=== PATIENT | male | born 1955 | race Caucasian/White ===

== ENCOUNTER 2018-07-17 09:22 | Day surgery (SDC) | payer MEDICARE ==
[~2018-07-17] VITALS: Ht 179.1 cm; Wt 87.3 kg
[2018-07-17 09:20] VITALS: BP 128/74
[~2018-07-17 09:22] MED LIST: CARV-50 PO; DIPH25CA83 PO; FLO0.4C PO; GABA-532 PO; IBUP-1984 PO; NITR0.4T SL; PRAV40TA3 PO; ZOLP10TA5 PO
[2018-07-17] MEDS ORDERED: CARV25TA PO (09:56)
[2018-07-17] MEDS ORDERED: LISI10TA4 PO (09:56)
[2018-07-17] MEDS ORDERED: GABA600T13 PO (09:57)
[2018-07-17] MEDS ORDERED: CYCL10TA26 PO (09:57)
[2018-07-17 10:02] VITALS: BP 133/83
[2018-07-17] MEDS ORDERED: fentaNYL/PF 50MCG/1 ML 2ML syringe ONE ×2 (10:20)
[2018-07-17] MEDS ORDERED: MIDAZolam 5mg/5ml vial ONE (10:20)
[2018-07-17 11:00] VITALS: BP 111/73
[2018-07-17 11:10] VITALS: BP 110/71
[2018-07-17 11:20] VITALS: BP 111/70
[2018-07-17 11:30] VITALS: BP 105/73
== END 2018-07-17 11:30 | disposition home or self-care (01) ==
LOC: GI LAB 09:22
PROVIDERS: ATTEND Internal Medicine Gastroenterology
DX: K64.8 Other hemorrhoids (principal); K57.30 Diverticulosis of large intestine without perforation or abscess without bleeding; K63.89 Other specified diseases of intestine
CPT/HCPCS: 45378; G0500; J2250; J3010; J7030; 99152; 99153; A4620

== ENCOUNTER 2020-02-10 13:05 | Inpatient (IN) | payer MEDICARE ==
[~2020-02-10] VITALS: Ht 177.8 cm; Wt 84.6 kg
[~2020-02-10 13:05] MED LIST changes: -CARV-50 PO; +CARV25TA PO; +CYCL10TA26 PO; -DIPH25CA83 PO; -FLO0.4C PO; -GABA-532 PO; +GABA600T13 PO; -IBUP-1984 PO; +LISI10TA4 PO; -NITR0.4T SL; -ZOLP10TA5 PO
[2020-02-10 13:57] LABS: BASOPHILS # (AUTO) 0.1 X10'3 (0-0.2); BASOPHILS % (AUTO) 1.1 % (0-1); EOSINOPHILS # (AUTO) 0.3 X10'3 (0-0.9); EOSINOPHILS % (AUTO) 3.3 % (0-6); HEMATOCRIT 45.2 % (42.0-52.0); HEMOGLOBIN 15.5 g/dl (14.0-17.9); LYMPHOCYTES # (AUTO) 1.7 X10'3 (1.1-4.8); LYMPHOCYTES % (AUTO) 17.4 % (21-51); MEAN CORPUSCULAR HEMOGLOBIN 32.8 PG (27.0-31.0); MEAN CORPUSCULAR HGB CONC 34.3 g/dL (33.0-36.5); MEAN CORPUSCULAR VOLUME 95.9 FL (78-98); MEAN PLATELET VOLUME 8.7 FL (7.4-10.4); MONOCYTES # (AUTO) 0.6 X10'3 (0-0.9); MONOCYTES % (AUTO) 5.9 % (2-12); NEUTROPHILS % (AUTO) 72.3 % (42-75); PLATELET COUNT 137 X10'3 (140-440); RED BLOOD COUNT 4.71 X10'6 (4.70-6.10); RED CELL DISTRIBUTION WIDTH 13.5 % (11.5-14.5); WHITE BLOOD COUNT 9.6 X10'3 (4.5-11.0)
--- NOTE | 2020-02-10 14:01 | NUR ---
Patient states that 10 days ago he smoked pot and had horrible chest pain and sob right after. He states that a few days later he tried smoking pot again and the same pain happened. Patient also states if he has any caffeine the tighteness and sob worsens.
[2020-02-10 14:13] LABS: ALANINE AMINOTRANSFERASE 21 U/L (12-78); ALBUMIN 4.2 G/DL (3.4-5.0); ALBUMIN/GLOBULIN RATIO 1.3 (1.1-1.5); ALKALINE PHOSPHATASE 81 IU/L (46-116); ANION GAP 8 (8-16); ASPARTATE AMINO TRANSFERASE 17 U/L (10-37); BILIRUBIN,TOTAL 0.9 MG/DL (0.1-1.0); BLOOD UREA NITROGEN 15 MG/DL (7-18); BUN/CREATININE RATIO 11.9 (5.4-32.0); CALCIUM 9.1 MG/DL (8.5-10.1); CHLORIDE 104 MMOL/L (99-107); CREATININE 1.26 MG/DL (0.60-1.10); GLUCOSE 150 MG/DL (70-104); POTASSIUM 4.1 MMOL/L (3.5-5.1); SODIUM 141 MMOL/L (135-145); TOTAL CARBON DIOXIDE 28.8 MMOL/L (24-32); TOTAL PROTEIN 7.5 G/DL (6.4-8.2); eGFR 58 ML/MIN
[2020-02-10] MEDS ORDERED: bisacodyl 10mg suppository rectal RC PRN (14:30)
[2020-02-10] MEDS ORDERED: magnesium 4gm in 100ml NS 100 ML IV PRN (14:30)
[2020-02-10] MEDS ORDERED: magnesium hydroxide 30ml (MOM) UD suspension PO PRN (14:30)
[2020-02-10] MEDS ORDERED: acetaminophen 650mg rectal suppository RC PRN (14:30)
[2020-02-10] MEDS ORDERED: magnesium Cl slow-release 64mg tablet PO PRN (14:30)
[2020-02-10] MEDS ORDERED: morphine 2 MG/ML inj. syringe IV PRN ×2 (14:30)
[2020-02-10] MEDS ORDERED: aminophylline 250mg/10ml inj. IV PRN (14:30)
[2020-02-10] MEDS ORDERED: acetaminophen 325mg tablet PO PRN ×2 (14:30)
[2020-02-10] MEDS ORDERED: ondansetron/PF 4mg/2ml inj IV PRN (14:30)
[2020-02-10] MEDS ORDERED: magnesium 2GM in 50ml NS 50 ML IV PRN (14:30)
[2020-02-10] MEDS ORDERED: nitroGLYCERIN 0.4mg SUBLingual tab SL PRN ×3 (14:30→14:35)
[2020-02-10] MEDS ORDERED: mag hydrox/Alum hydrox/simeth 30ml oral suspension PO PRN (14:30)
[2020-02-10] MEDS ORDERED: potassium Cl 20 mEq SR tablet PO PRN ×2 (14:30)
[2020-02-10] MEDS ORDERED: regadenoson 0.4mg/5ml syringe IV PRN (14:30)
[2020-02-10] MEDS ORDERED: metoclopramide 5 mg/ml inj IV PRN (14:30)
[2020-02-10] MEDS ORDERED: potassium CL 10mEq/100ml bag 100 ML IV PRN ×2 (14:30)
[2020-02-10] MEDS ORDERED: metoprolol tartrate 1mg/ml inj IV PRN (14:30)
[2020-02-10 14:55] LABS: PARTIAL THROMBOPLASTIN TIME 29 SECONDS (22-32)
[2020-02-10] MEDS ORDERED: LISI-600 PO (15:20)
[2020-02-10] MEDS ORDERED: GABA300C PO (15:20)
[2020-02-10] MEDS ORDERED: ZOLP10TA PO (15:20)
[2020-02-10] MEDS ORDERED: MELO-102 PO (15:20)
[2020-02-10] MEDS ORDERED: TIZA4TAB5 PO (15:20)
[2020-02-10] MEDS ORDERED: iohexol 350MG/ML 100ml bottle IV ONE (15:47)
--- NOTE | 2020-02-10 16:00 | NUR ---
Received report from Ryan ARTEAGA in ED. Patient will be admitted to room 3028B
[2020-02-10] MEDS ORDERED: tizanidine 4mg tablet PO PRN (16:05)
[2020-02-10] MEDS ORDERED: hydrALAZINE 20mg/ml inj. IV PRN (16:05)
[2020-02-10] MEDS ORDERED: zolpidem 5mg tablet PO PRN (16:10)
--- NOTE | 2020-02-10 16:40 | NUR ---
Patient admitted to room 3028B. 2 RN skin check done, vital signs obtained. equipment monitor phototypesetting placed on patient and IV fluids initiated per MD order
[2020-02-10] MEDS: lisinopril 20mg tablet PO SCH (16:43)
[2020-02-10] MEDS: normal saline 1000ml 1,000 ML IV SCH (16:45)
[2020-02-10] MEDS: gabapentin 300mg capsule PO SCH ×3 (17:55→23:04)
--- NOTE | 2020-02-10 18:00 | NUR ---
Patient in room PCU 3028. I have received report from Danya ARTEAGA and had the opportunity to ask questions and assume patient care.
--- NOTE | 2020-02-10 18:26 | NUR ---
Problems reprioritized. Patient report given, questions answered & plan of care reviewed with Francoise ARTEAGA.
[2020-02-10] MEDS: carVEDilol 12.5mg tablet PO SCH (19:46)
[2020-02-10] MEDS: heparin, porcine 5000 units/ml vial SQ SCH (19:46)
[2020-02-10] MEDS: K and/or MAG REPLACEMENT MC SCH (19:53)
[2020-02-10] MEDS ORDERED: pravastatin 40mg tablet PO SCH (21:00)
[2020-02-10] MEDS ORDERED: temazepam 15mg capsule PO PRN (21:00)
[2020-02-10] MEDS: naproxen 375mg tablet PO SCH (21:15)
[2020-02-10 22:00] VITALS: BP 133/86
[2020-02-11] VITALS (11 sets, daily range): BP systolic 121–146; BP diastolic 67–96
[2020-02-11] MEDS: normal saline 1000ml 1,000 ML IV SCH ×2 (01:27→10:30)
[2020-02-11 01:39] LABS: HEMOGLOBIN 14.3 g/dl (14.0-17.9); MEAN CORPUSCULAR HEMOGLOBIN 32.5 PG (27.0-31.0); MEAN CORPUSCULAR HGB CONC 34.1 g/dL (33.0-36.5); MEAN CORPUSCULAR VOLUME 95.5 FL (78-98); MEAN PLATELET VOLUME 8.6 FL (7.4-10.4); PLATELET COUNT 122 X10'3 (140-440); RED CELL DISTRIBUTION WIDTH 13.3 % (11.5-14.5); WHITE BLOOD COUNT 7.6 X10'3 (4.5-11.0)
[2020-02-11 01:59] LABS: ALBUMIN 3.7 G/DL (3.4-5.0); ANION GAP 9 (8-16); BLOOD UREA NITROGEN 13 MG/DL (7-18); BUN/CREATININE RATIO 12.7 (5.4-32.0); CALCIUM 8.3 MG/DL (8.5-10.1); CHLORIDE 105 MMOL/L (99-107); CHOL/HDL RATIO 3.3 (0.00-4.99); CHOLESTEROL 131 MG/DL (0-200); CREATININE 1.02 MG/DL (0.60-1.10); GLUCOSE 94 MG/DL (70-104); HDL CHOLESTEROL 40 MG/DL (35-60); LDL CHOLESTEROL 74 MG/DL (50-100); MAGNESIUM 1.7 MG/DL (1.5-2.4); PHOSPHORUS 3.9 MG/DL (2.3-4.5); POTASSIUM 3.5 MMOL/L (3.5-5.1); SODIUM 140 MMOL/L (135-145); TOTAL CARBON DIOXIDE 26.4 MMOL/L (24-32); TRIGLYCERIDES 97 MG/DL (20-135); eGFR 74 ML/MIN
[2020-02-11] MEDS: gabapentin 300mg capsule PO SCH ×5 (03:00→15:00)
--- NOTE | 2020-02-11 06:23 | NUR ---
Patient in room PCU 3028B. I have received report from Francoise ARTEAGA and had the opportunity to ask questions and assume patient care.
--- NOTE | 2020-02-11 06:27 | NUR ---
Problems reprioritized. Patient report given, questions answered & plan of care reviewed with Danya ARTEAGA.
[2020-02-11] MEDS: K and/or MAG REPLACEMENT MC SCH (08:00)
[2020-02-11] MEDS: naproxen 375mg tablet PO SCH ×2 (08:00→12:38)
--- NOTE | 2020-02-11 08:00 | NUR ---
0600 gabapentin not administered due to rule of halves, and there is a 0900 dose that will be given
[2020-02-11] MEDS: carVEDilol 12.5mg tablet PO SCH (08:13)
[2020-02-11] MEDS: lisinopril 20mg tablet PO SCH (08:13)
[2020-02-11] MEDS: heparin, porcine 5000 units/ml vial SQ SCH (08:14)
--- NOTE | 2020-02-11 08:18 | NUR ---
Naproxen 375 mg, Aspirin 81 mg meds held this AM as patient is NPO due to stress test and patient also states does not want to take until he has food. Gabapentin 0900 dose refused by patient and held.
--- NOTE | 2020-02-11 08:21 | NUR ---
Nuc Med nurse said it was okay to administer Coreg 25 mg and Lisinopril 40 mg this AM, as patient is worried he will go into SVT during test if he does not have medication (has hx of svt)
--- NOTE | 2020-02-11 08:29 | NUR ---
Paged PAGER ID: [phone] MESSAGE: Danya blood [id number]. Charli Ovalle 3028B. Pt is requesting anxiety PRN if possible, patient is nervous and anxious about stress test this AM
[2020-02-11] MEDS ORDERED: aspirin 81mg tablet.DR PO SCH (08:30)
[2020-02-11] MEDS ORDERED: LORazepam 2 mg/ml vial IV PRN (08:50)
--- NOTE | 2020-02-11 09:07 | NUR ---
Patient taken to nuc med
--- NOTE | 2020-02-11 13:13 | NUR ---
Navin FERREIRA regarding netta report PAGER ID: [phone] MESSAGE: Danya blood [id number]. Charli Ovalle 3028B. Netta report is up and available to read
--- NOTE | 2020-02-11 14:44 | NUR ---
dayday FERREIRA PAGER ID: [phone] MESSAGE: Danya blood [id number]. Re Charli Fam 3028B. Patient is asking to have food, may I feed patient?
--- NOTE | 2020-02-11 16:22 | NUR ---
Patient refusing tele since he is being discharged today. Education provided to patient. Tele monitor currently on table at bedside
[2020-02-11] MEDS ORDERED: LISI-600 PO (16:42)
--- NOTE | 2020-02-11 17:45 | NUR ---
Per MD, patient stable for discharge. Discharge packet completed and given to patient. No new prescriptions, however Dr Rubio recommends that patient takes 40 mg Lisinopril instead of 20 mg (already has rx). IV removed with catheter intact and tele monitor removed and returned to telecommunication engineer. Home medications brought up from pharmacy and returned to patient. Patient escorted from hospital via wheelchair, accompanied by community reinvestment act officer, and patient drove self home in private vehicle.
== END 2020-02-11 17:39 | disposition home or self-care (01) | DRG 302 ==
LOC: ER 13:06 → ED HOLD 14:55 → PCU 3S 16:40
PROVIDERS: ADMIT Family Medicine; ATTEND Family Medicine
PROC: B32T1ZZ Computerized Tomography (CT Scan) of Left Pulmonary Artery using Low Osmolar Contrast (ICD-10-PCS; 2020-02-10)
PROC: B3201ZZ Computerized Tomography (CT Scan) of Thoracic Aorta using Low Osmolar Contrast (ICD-10-PCS; 2020-02-10)
PROC: B32S1ZZ Computerized Tomography (CT Scan) of Right Pulmonary Artery using Low Osmolar Contrast (ICD-10-PCS; 2020-02-10)
PROC: 4A02XM4 Measurement of Cardiac Total Activity, External Approach (ICD-10-PCS; principal; 2020-02-11)
PROC: 3E073KZ Introduction of Other Diagnostic Substance into Coronary Artery, Percutaneous Approach (ICD-10-PCS; 2020-02-11)
DX: I25.119 Atherosclerotic heart disease of native coronary artery with unspecified angina pectoris (principal); N17.0 Acute kidney failure with tubular necrosis; E78.00 Pure hypercholesterolemia, unspecified; E78.5 Hyperlipidemia, unspecified; F12.90 Cannabis use, unspecified, uncomplicated; M54.2 Cervicalgia; G47.30 Sleep apnea, unspecified; M54.9 Dorsalgia, unspecified; G89.29 Other chronic pain; I10 Essential (primary) hypertension; M41.9 Scoliosis, unspecified; N40.0 Benign prostatic hyperplasia without lower urinary tract symptoms; Z79.899 Other long term (current) drug therapy; Z82.49 Family history of ischemic heart disease and other diseases of the circulatory system
CPT/HCPCS: 36415; 71045; 71275; 78452; 80048; 80053; 80061; 83735; 83880; 84100; 84443; 84484; 85025; 85027; 85610; 85730; 87081; 93005; 93017; 93306; 99285; A9500; G0378; J1644; J2060; J2270; J2405; J2785; J7030; Q9967

== ENCOUNTER 2022-02-02 07:42 | Outpatient (CLI) | payer MEDICARE ==
[~2022-02-02] VITALS: Ht 180.3 cm; Wt 85.9 kg
[2022-02-02] VITALS (7 sets, daily range): BP systolic 135–153; BP diastolic 83–92
[~2022-02-02 07:42] MED LIST changes: -CYCL10TA26 PO; +GABA300C PO; -GABA600T13 PO; -LISI10TA4 PO; +LISI20TA28 PO; +MELO-102 PO; +TIZA-205 PO; +ZOLP10TA PO
[2022-02-02] MEDS ORDERED: regadenoson 0.4mg/5ml syringe IV ONE (08:25)
== END 2022-02-02 23:59 | disposition home or self-care (01) ==
LOC: RAD 07:42
PROVIDERS: ATTEND Internal Medicine Cardiovascular Disease
DX: I25.10 Atherosclerotic heart disease of native coronary artery without angina pectoris (principal)
CPT/HCPCS: 78452; 93017; A9500; J2785

== ENCOUNTER 2022-02-25 05:41 | Day surgery (SDC) | payer MEDICARE ==
[2022-02-24 11:17] LABS: BASOPHILS # (AUTO) 0.1 X10'3 (0-0.2); BASOPHILS % (AUTO) 1.3 % (0-1); EOSINOPHILS # (AUTO) 0.3 X10'3 (0-0.9); HEMOGLOBIN 14.3 g/dl (14.0-17.9); LYMPHOCYTES # (AUTO) 1.9 X10'3 (1.1-4.8); LYMPHOCYTES % (AUTO) 25.7 % (21-51); MEAN CORPUSCULAR HEMOGLOBIN 32.5 PG (27.0-31.0); MEAN CORPUSCULAR HGB CONC 33.9 g/dL (33.0-36.5); MEAN CORPUSCULAR VOLUME 95.9 FL (78-98); MEAN PLATELET VOLUME 9.1 FL (7.4-10.4); MONOCYTES # (AUTO) 0.5 X10'3 (0-0.9); MONOCYTES % (AUTO) 7.1 % (2-12); NEUTROPHILS # (AUTO) 4.6 X10'3 (1.8-7.7); NEUTROPHILS % (AUTO) 61.9 % (42-75); PLATELET COUNT 110 X10'3 (140-440); RED BLOOD COUNT 4.38 X10'6 (4.70-6.10); RED CELL DISTRIBUTION WIDTH 13.8 % (11.5-14.5); WHITE BLOOD COUNT 7.4 X10'3 (4.5-11.0)
[2022-02-24 11:23] LABS: ALBUMIN 3.6 G/DL (3.4-5.0); ANION GAP 7 (8-16); BLOOD UREA NITROGEN 13 MG/DL (7-18); BUN/CREATININE RATIO 11.5 (5.4-32.0); CALCIUM 8.9 MG/DL (8.5-10.1); CHLORIDE 103 MMOL/L (99-107); CREATININE 1.13 MG/DL (0.60-1.10); GLUCOSE 102 MG/DL (70-104); POTASSIUM 4.7 MMOL/L (3.5-5.1); SODIUM 139 MMOL/L (135-145); eGFR 65 ML/MIN
[2022-02-24 11:30] LABS: APTT 30 SECONDS (22-32)
[2022-02-25] VITALS (10 sets, daily range): BP systolic 114–144; BP diastolic 59–83
[~2022-02-25] VITALS: Ht 177.8 cm; Wt 83.9 kg
[2022-02-25] MEDS ORDERED: normal saline 1,000 ML IV SCH (06:20)
[2022-02-25] MEDS ORDERED: LORazepam 0.5 MG tablet PO PRN (06:20)
[2022-02-25] MEDS ORDERED: diphenhydrAMINE 25mg capsule PO PRN (06:20)
[2022-02-25] MEDS ORDERED: FLO0.4C PO (06:30)
[2022-02-25] MEDS ORDERED: LORA-269 PO (06:30)
[2022-02-25] MEDS ORDERED: NITR0.4T51 SL (06:30)
[2022-02-25] MEDS ORDERED: ASPI-12 PO (06:30)
[2022-02-25] MEDS ORDERED: LISI40TA13 PO (06:30)
[2022-02-25] MEDS ORDERED: nitroGLYCERIN-Tridil 50MG/D5W 250 ML IV ONE (07:34)
[2022-02-25] MEDS ORDERED: verapamil 2.5 mg/ml inj IV ONE (07:34)
[2022-02-25] MEDS ORDERED: heparin 1,000unit/ml 10ml vial 10 ML ONE (07:35)
[2022-02-25] MEDS ORDERED: LIDOcaine 1%/PF 5ML 10 MG/ML VIAL ONE (07:35)
[2022-02-25] MEDS ORDERED: midazolam 1 mg/ML 2ml injection ONE (07:35)
[2022-02-25] MEDS ORDERED: fentaNYL/PF 50MCG/1 ML 2ML syringe ONE (07:35)
[2022-02-25] MEDS ORDERED: iohexol 350MG/ML 100ml bottle IV ONE ×2 (07:35→07:46)
[2022-02-25] MEDS ORDERED: normal saline 1000ml 1,000 ML IV SCH (10:15)
== END 2022-02-25 13:00 | disposition home or self-care (01) ==
LOC: SSTAY O 05:41
PROVIDERS: ATTEND Internal Medicine Cardiovascular Disease
DX: R94.39 Abnormal result of other cardiovascular function study (principal); I25.10 Atherosclerotic heart disease of native coronary artery without angina pectoris; E66.3 Overweight; G47.30 Sleep apnea, unspecified; I10 Essential (primary) hypertension; E78.5 Hyperlipidemia, unspecified; Z79.899 Other long term (current) drug therapy; Z98.890 Other specified postprocedural states; Z79.01 Long term (current) use of anticoagulants; Z82.49 Family history of ischemic heart disease and other diseases of the circulatory system
CPT/HCPCS: 36415; 80048; 85025; 85610; 85730; 93005; 93458; 99152; 99153; C1769; C1894; J1644; J2250; J3010; J3490; J7030; Q0163; Q9967; A4620; A5120; A6258; A6449

== ENCOUNTER 2024-04-04 08:06 | Outpatient (CLI) | payer MEDICARE ==
[2024-04-04] VITALS (8 sets, daily range): BP systolic 129–166; BP diastolic 70–102; PULSE 64–87; RESP 14–16; O2SAT 98–100
[~2024-04-04] VITALS: Ht 179.1 cm; Wt 84.4 kg
[~2024-04-04 08:06] MED LIST changes: +ASPI-12 PO; +FLO0.4C PO; -LISI20TA28 PO; +LISI40TA13 PO; +LORA-269 PO; +NITR0.4T51 SL; -ZOLP10TA PO
[2024-04-04] MEDS ORDERED: regadenoson 0.4mg/5ml syringe IV ONE (09:30)
[2024-04-04] MEDS ORDERED: nitroGLYCERIN 0.4mg SUBLingual tab SL PRN (09:35)
[2024-04-04] MEDS ORDERED: metoprolol tartrate 1mg/ml inj IV PRN (09:35)
[2024-04-04] MEDS ORDERED: atropine 0.1mg/ml 10ml syringe IV PRN (09:35)
[2024-04-04] MEDS ORDERED: aminophylline 250mg/10ml inj. IV PRN (09:35)
[2024-04-04] MEDS: regadenoson 0.4mg/5ml syringe IV ONE (09:43)
== END 2024-04-04 23:59 | disposition home or self-care (01) ==
LOC: RAD 08:06
PROVIDERS: ATTEND Student in an Organized Health Care Education/Training Program
DX: Z01.818 Encounter for other preprocedural examination (principal); I25.10 Atherosclerotic heart disease of native coronary artery without angina pectoris; R06.00 Dyspnea, unspecified; I10 Essential (primary) hypertension; I47.10 Supraventricular tachycardia, unspecified
CPT/HCPCS: 78452; 93017; A9500; J2785

== ENCOUNTER 2024-12-26 08:56 | Day surgery (SDC) | payer MEDICARE ==
[2024-12-25 09:59] LABS: MEAN PLATELET VOLUME 9.4 FL (7.4-10.4); RED CELL DISTRIBUTION WIDTH 14.1 % (11.5-14.5)
[2024-12-25 10:11] LABS: CREATININE 1.15 MG/DL (0.60-1.10); TOTAL CARBON DIOXIDE 30.4 MMOL/L (24-32); eGFR 63 ML/MIN
[2024-12-25 10:15] LABS: APTT 29 SECONDS (22-32); INR 1.1 INR
[2024-12-26] VITALS (10 sets, daily range): BP systolic 101–139; BP diastolic 59–82; PULSE 61–69; RESP 16; TEMP 97.8; O2SAT 96–98
[~2024-12-26] VITALS: Ht 177.8 cm; Wt 82.9 kg
[~2024-12-26 08:56] MED LIST changes: -FLO0.4C PO; +TAMS-55 PO
--- NOTE | 2024-12-26 09:35 | ELECTROCARDIOGRAPH REPORT ---
[facility] Test Date: 2024-12-26 Test Time: 09:33:32 Pat Name: AZAM MORAN Department: [facility] Patient ID: [facility]-[id number] Room: Gender: M Eligibility Counselor: KATHY : 1955 Requested By: BABAR MAST Order Number: [id number] Reading MD: Dr. CAL Mast Measurements Intervals [place] Rate: 67 P: 53 AR: 174 QRS: 34 QRSD: 83 T: 26 QT: 401 QTc: 424 Interpretive Statements Sinus rhythm Electronically Signed On 12-26-2024 19:52:[address] CAL Mast Please click the below link to view image of tracing.
[2024-12-26] MEDS ORDERED: BACL20TA11 PO (09:51)
[2024-12-26] MEDS ORDERED: ROSU40TA PO (09:51)
[2024-12-26] MEDS ORDERED: DIPH25TA62 PO (09:51)
[2024-12-26] MEDS ORDERED: fentaNYL/PF 50MCG/1 ML 2ML syringe ONE (10:01)
[2024-12-26] MEDS ORDERED: LIDOcaine 1% (10mg/ml) 2ml vial ONE (10:01)
[2024-12-26] MEDS ORDERED: verapamil 2.5 mg/ml inj IV ONE (10:01)
[2024-12-26] MEDS ORDERED: heparin 1,000unit/ml 10ml vial 10 ML ONE (10:01)
[2024-12-26] MEDS ORDERED: iohexol 350 MG/ML 50ML vial IV ONE (10:01)
[2024-12-26] MEDS ORDERED: midazolam 1 mg/ML 2ml injection ONE (10:01)
[2024-12-26] MEDS ORDERED: nitroGLYCERIN 500mcg/5mL D5W 5 ML IV ONE (10:02)
[2024-12-26] MEDS: sodium bicarbonate 1meq/ml syr 150 ML in dextrose 5%-water 1,000 ML IV ONE (10:51)
[2024-12-26] MEDS ORDERED: HYDROcodone/acetaminophen 10/325mg tab PO PRN (12:45)
[2024-12-26] MEDS ORDERED: HYDROcodone/acetaminophen 5mg/325mg tablet PO PRN (12:45)
[2024-12-26] MEDS ORDERED: sodium bicarbonate 1meq/ml syr 150 ML in dextrose 5%-water 1,000 ML IV ONE (12:45)
--- NOTE | 2024-12-27 04:51 | CARDIOLOGY REPORT ---
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 After discussing risks, benefits and alternative options, the patient did undergo left coronary angiography. Risks, benefits, and alternative options discussed, informed consent obtained. The patient also had some CKD. Risks, benefits, and alternative options discussed, informed consent obtained. PROCEDURE TECHNIQUE: The patient underwent left heart catheterization from right radial approach, 6-Macedonian right radial sheath. Post-procedure access site hemostasis secured with right radial band. The patient tolerated the procedure well. COMPLICATIONS: None. PROCEDURES DONE: * Ultrasound-guided right radial artery visualization and access. * Left heart catheterization. * LVG. * Coronary cineangiography. * Conscious sedation time of 30 minutes. FINDINGS: HEMODYNAMICS: Aortic systolic 97, diastolic 45, mean 66 mmHg. LVEDP of 3 mmHg with no significant gradient across the aortic valve. LEFT VENTRICULOGRAM: Overall, left ventricular systolic function normal with LV ejection fraction of 65-70%. CORONARY CINEANGIOGRAPHY: Left main coronary artery is a large caliber vessel arising from the left aortic sinus engaged with JL4 from the right radial approach with minimal luminal irregularities. LAD is a medium caliber vessel arising at the bifurcation of the main coronary artery, courses through the anterior intraventricular groove and ends by wrapping around the apex. LAD has areas of 50% narrowing in the mid portion of the diagonal. Diagonal 1 and 2 are 2.5-mm caliber with areas of 40% narrowing. Circumflex artery is a medium caliber vessel arising at the bifurcation of the left main coronary artery and he is a nondominant vessel. It continues as OM, which is 1.75-mm caliber with mild luminal irregularities. After that, circumflex artery tapers off in the AV groove. Right coronary artery is a medium caliber dominant vessel arising at the right aortic sinus, moderately calcified, courses through the right AV groove, and ends at the posterior crux by dividing into the PDA and the posterolateral branches. Mid RCA has a 60-70% narrowing, distal RCA has 40% narrowing and proximal PDA is 40% narrowing. It is a 2.5-mm caliber vessel. Posterolateral branch is 3-mm caliber, divides into 2 divisions with mild luminal irregularities. IMPRESSION: A 69-year-old with LVEF of 65-70%. LVEDP of 3 mmHg with no significant gradient across the aortic valve. LAD with mid 50-60% narrowing. Diagonal with 40% narrowing. Circ OM with 30% narrowing. Dominant RCA of 60-70% narrowing in the mid portion, distal RCA of 40% narrowing, proximal PDA of 40% narrowing. RECOMMENDATIONS: At this time patient prefers continued medical therapy and Like to proceed with his back surgery. Recommend continued aggressive coronary risk factor modifications, namely low-fat, local-cholesterol diet, high-dose statins, maintaining ideal body weight, keep LDL less than 70 mm, regular exercise program. The patient can undergo proposed back surgery. CAL Stewart MD TID: [id number] RECEIPT: [id number] JOSÉ/JADEN/YAMILE cc: Ariel Shah MD MTDD
== END 2024-12-26 16:50 | disposition home or self-care (01) ==
LOC: SSTAY O 08:56
PROVIDERS: ATTEND Internal Medicine Cardiovascular Disease
DX: R94.39 Abnormal result of other cardiovascular function study (principal); I25.10 Atherosclerotic heart disease of native coronary artery without angina pectoris; I12.9 Hypertensive chronic kidney disease with stage 1 through stage 4 chronic kidney disease, or unspecified chronic kidney disease; N18.9 Chronic kidney disease, unspecified; E78.5 Hyperlipidemia, unspecified; G47.00 Insomnia, unspecified; G47.30 Sleep apnea, unspecified; Z79.82 Long term (current) use of aspirin; Z79.899 Other long term (current) drug therapy; Z98.890 Other specified postprocedural states; Z82.49 Family history of ischemic heart disease and other diseases of the circulatory system
CPT/HCPCS: 80048; 85025; 85610; 85730; 93005; 93458; 99152; 99153; A6258; A6402; C1725; C1894; J1200; J1644; J2003; J2250; J3010; J3490; J7030; J7070; Q9967; Z7610; 76937